=== PATIENT | female | born 1980 | race Caucasian/White ===

== ENCOUNTER 2017-10-12 22:10 | Inpatient (IN) | END 2017-10-17 13:53 | disposition home or self-care (01) | DRG 766 ==

== ENCOUNTER 2018-10-21 13:42 | Outpatient (CLI) | payer OTHER ==
[~2018-10-21] VITALS: Ht 162.6 cm; Wt 63.6 kg
[~2018-10-21 13:42] MED LIST: LABE100T7 PO; PNV11TAB PO
[2018-10-21 15:16] VITALS: Ht 162.6 cm; Wt 63.6 kg
[2018-10-21 15:17] VITALS: BP 138/70; PULSE 109; RESP 19
[2018-10-21] MEDS ORDERED: LACTATED RINGER'S 1,000 ML IV SCH (16:30)
[2018-10-21] MEDS ORDERED: LACTATED RINGER'S 500 ML IV ONE (16:30)
== END 2018-10-21 18:39 | disposition home or self-care (01) ==
LOC: L-D 13:42 → OBT 13:42
PROVIDERS: ATTEND Obstetrics & Gynecology
DX: O16.3 Unspecified maternal hypertension, third trimester (principal); Z3A.36 36 weeks gestation of pregnancy
CPT/HCPCS: 76815; 76818; J7120; Z7500; G0463

== ENCOUNTER 2018-11-02 06:00 | Inpatient (IN) | payer OTHER ==
[~2018-11-02] VITALS: Ht 162.6 cm; Wt 111.6 kg
[2018-11-02] MEDS ORDERED: LACTATED RINGER'S 1,000 ML IV SCH ×2 (06:18→12:13)
[2018-11-02] MEDS ORDERED: MISOPROSTOL 200 MCG TAB PR PRN ×2 (06:30→12:30)
[2018-11-02] MEDS ORDERED: METHYLERGONOVINE 0.2 MG INJ IM PRN ×2 (06:30→12:30)
[2018-11-02] MEDS ORDERED: CEFAZOLIN 2 GM/50 ML (PMX) 50 ML IVPB SCH (06:30)
[2018-11-02] MEDS ORDERED: OXYTOCIN 30 UNITS/LR 500 ML IV PRN ×2 (06:30→12:30)
[2018-11-02] MEDS ORDERED: CARBOPROST 250 MCG INJ IM PRN ×2 (06:30→12:30)
[2018-11-02 06:32] VITALS: Ht 162.6 cm; Wt 111.6 kg
[2018-11-02] MEDS ORDERED: CITRIC ACID/NA CITRATE 30 ML CUP PO ONE (07:30)
[2018-11-02] MEDS ORDERED: ONDANSETRON 4 MG INJ IV ONE (07:30)
[2018-11-02] MEDS ORDERED: PHENYLephrine (100 MCG/ML) 10ML SYG ONE (09:55)
[2018-11-02] MEDS ORDERED: OXYTOCIN 10 UNIT INJ ONE ×2 (09:56→11:03)
[2018-11-02] MEDS ORDERED: morphine SULFATE/PF (10 MG/10 ML) INJ ONE (09:56)
[2018-11-02] MEDS ORDERED: CEFAZOLIN 1 GM INJ ONE (10:00)
[2018-11-02] MEDS ORDERED: DEXAMETHASONE 4 MG/ML 1 ML INJ ONE (10:28)
[2018-11-02] MEDS ORDERED: KETOROLAC 30 MG INJ ONE (10:28)
[2018-11-02] MEDS ORDERED: METOCLOPRAMIDE 10 MG INJ ONE (10:28)
[2018-11-02] MEDS ORDERED: NALOXONE (0.4 MG/ML) INJ IV PRN (11:00)
[2018-11-02] MEDS ORDERED: DIPHENHYDRAMINE 50 MG INJ IV PRN (11:00)
[2018-11-02] MEDS ORDERED: HYDROCODONE/APAP (5/325) TAB PO PRN (11:00)
[2018-11-02] MEDS ORDERED: KETOROLAC 30 MG INJ IV PRN (11:00)
[2018-11-02] MEDS ORDERED: HYDROmorphONE 0.5 MG/0.5 ML SYG IV PRN ×2 (11:00)
[2018-11-02] MEDS ORDERED: NALBUPHINE HCL (10 MG/1 ML) INJ IV PRN (11:00)
[2018-11-02] MEDS ORDERED: morphine 2 MG INJ IV PRN ×2 (11:00)
[2018-11-02] MEDS ORDERED: ACETAMINOPHEN 500 MG TAB PO PRN (11:00)
[2018-11-02] MEDS ORDERED: ONDANSETRON 4 MG INJ IV PRN (11:00)
[2018-11-02] MEDS ORDERED: OXYTOCIN 30 UNITS/LR 500 ML IV ONE (11:13)
[2018-11-02] MEDS: OXYTOCIN 30 UNITS/LR 500 ML IV SCH ×2 (11:40→15:46)
[2018-11-02] MEDS ORDERED: OXYTOCIN 30 UNITS/LR 500 ML IV SCH (12:13)
[2018-11-02] MEDS ORDERED: LANOLIN HPA 1 PKT TOP PRN (12:30)
[2018-11-02] MEDS ORDERED: METHYLERGONOVINE 0.2 MG TAB PO PRN (12:30)
[2018-11-02 15:00] VITALS: BP 126/66; PULSE 82; RESP 18
[2018-11-02 19:45] VITALS: BP 107/65; PULSE 93; RESP 20
[2018-11-02] MEDS: SENNA/DOCUSATE NA (8.6MG/50MG) TAB PO SCH (21:00)
[2018-11-03 00:30] VITALS: BP 111/61; PULSE 86; RESP 18
[2018-11-03 04:10] VITALS: BP 105/55; PULSE 86; RESP 18
[2018-11-03] MEDS ORDERED: morphine 2 MG INJ IV PRN (04:30)
[2018-11-03] MEDS ORDERED: DIPHENHYDRAMINE 50 MG INJ IV PRN (04:30)
[2018-11-03] MEDS ORDERED: morphine 4 MG/ML VIAL IV PRN (04:30)
[2018-11-03] MEDS ORDERED: KETOROLAC 30 MG INJ IV PRN (04:30)
[2018-11-03] MEDS ORDERED: HYDROmorphONE 2 MG/ML SYG IV PRN ×2 (04:30)
[2018-11-03] MEDS: OXYTOCIN 30 UNITS/LR 500 ML IV SCH (06:42)
[2018-11-03 08:00] VITALS: BP 111/65; PULSE 82; RESP 18
[2018-11-03] MEDS: SENNA/DOCUSATE NA (8.6MG/50MG) TAB PO SCH ×2 (09:07→19:52)
[2018-11-03] MEDS ORDERED: HYDROCODONE/APAP (5/325) TAB PO PRN (09:30)
[2018-11-03] MEDS: IBUPROFEN 800 MG TAB PO PRN ×3 (11:39→23:27)
[2018-11-03] MEDS: FERROUS SULFATE (EC) 325 MG TAB PO SCH ×2 (14:45→21:59)
[2018-11-03] MEDS: HYDROCODONE/APAP (5/325) TAB PO PRN ×2 (15:30→19:52)
[2018-11-03 16:36] VITALS: BP 118/72; PULSE 77; RESP 18
[2018-11-03 19:55] VITALS: BP 105/59; PULSE 97; RESP 20
[2018-11-04] MEDS: HYDROCODONE/APAP (5/325) TAB PO PRN ×3 (03:51→22:41)
[2018-11-04 04:00] VITALS: BP 139/89; PULSE 79; RESP 20
[2018-11-04] MEDS: IBUPROFEN 800 MG TAB PO PRN ×3 (05:46→18:18)
[2018-11-04 08:00] VITALS: BP 125/82; PULSE 91; RESP 16
[2018-11-04] MEDS: SENNA/DOCUSATE NA (8.6MG/50MG) TAB PO SCH ×2 (09:12→21:07)
[2018-11-04] MEDS: FERROUS SULFATE (EC) 325 MG TAB PO SCH ×3 (09:12→21:07)
[2018-11-04 16:00] VITALS: BP 136/76; PULSE 93; RESP 18
[2018-11-04 20:00] VITALS: BP 138/64; PULSE 89; RESP 18
[2018-11-05] MEDS: IBUPROFEN 800 MG TAB PO PRN ×2 (02:38→13:35)
[2018-11-05 04:00] VITALS: BP 134/77; PULSE 77; RESP 16
[2018-11-05] MEDS: HYDROCODONE/APAP (5/325) TAB PO PRN (05:57)
[2018-11-05 08:15] VITALS: BP 144/74; PULSE 72; RESP 18
[2018-11-05] MEDS ORDERED: MEASLES,MUMPS,RUBELLA VACCINE INJ SC* ONE (09:00)
[2018-11-05] MEDS ORDERED: DIPHTH/TET/ACEL PERTUSS (ADULT) 0.5 ML VIAL IM* ONE (09:00)
[2018-11-05] MEDS: SENNA/DOCUSATE NA (8.6MG/50MG) TAB PO SCH (09:26)
[2018-11-05] MEDS: FERROUS SULFATE (EC) 325 MG TAB PO SCH ×2 (09:26→13:35)
[2018-11-05 16:36] VITALS: BP 138/67; PULSE 78; RESP 18
== END 2018-11-05 19:59 | disposition home or self-care (01) | DRG 788 ==
LOC: L-D 06:00 → PP1 14:45
PROVIDERS: ADMIT Obstetrics & Gynecology; ATTEND Obstetrics & Gynecology
PROC: 0DNU0ZZ Release Omentum, Open Approach (ICD-10-PCS; 2018-11-02)
PROC: 10D00Z1 Extraction of Products of Conception, Low, Open Approach (ICD-10-PCS; principal; 2018-11-02 09:30)
DX: O34.211 Maternal care for low transverse scar from previous cesarean delivery (principal); O99.89 Other specified diseases and conditions complicating pregnancy, childbirth and the puerperium; N73.6 Female pelvic peritoneal adhesions (postinfective); O69.1XX0 Labor and delivery complicated by cord around neck, with compression, not applicable or unspecified; O99.02 Anemia complicating childbirth; D50.9 Iron deficiency anemia, unspecified; Z86.32 Personal history of gestational diabetes; Z3A.39 39 weeks gestation of pregnancy; Z37.0 Single live birth; Z23 Encounter for immunization
CPT/HCPCS: 36415; 36600; 80048; 80307; 82803; 85025; 85610; 85730; 86592; 86850; 86900; 86901; 87340; 88307; 90715; 99464; J0690; J1100; J1885; J2274; J2370; J2405; J2590; J2765; J7120